=== PATIENT | male | born 1955 | race Caucasian/White ===

== ENCOUNTER → 2024-09-10 07:36 | Outpatient (CLI) | payer MEDICARE, SELFPAY ==
--- NOTE | 2024-09-10 07:39 | DI.NM.S_ITS ---
PROCEDURE: NM EXERCISE TREADMILL NON NUC COMPARISON: None. INDICATIONS: PALPITATIONS,CA CALCIFICATION,PROSTATE CA FINDINGS: Patient exercised per the standard Luis A protocol. Total exercise time was 9 minutes and 24 seconds. Test was terminated secondary to fatigue. Maximum heart rate obtained is 154 bpm which is 103% of max predicted heart rate. Maximum blood pressure was 170/76[place] [address]. [place] -36%. 10.1 METS. No ischemic changes noted. No arrhythmias noted during stress phase. 3 beat paroxysmal atrial tachycardia noted in early recovery. No chest pains voiced. Normal heart rate and blood pressure response to exercise. IMPRESSION: 1. Negative exercise treadmill stress test for ischemia. 2. Above average exercise tolerance. Dictated by: Josep Machado M.D. on 09/10/2024 at 16:50 Approved by: Josep Machado M.D. on 09/10/2024 at 16:52
== END ==
PROVIDERS: Referring Provider Internal Medicine Cardiovascular Disease; Visit Provider Internal Medicine Cardiovascular Disease
DX: I25.10 Atherosclerotic heart disease of native coronary artery without angina pectoris (principal); C61 Malignant neoplasm of prostate; R00.2 Palpitations
CPT/HCPCS: 93017